=== PATIENT | female | born 1990 | race Caucasian/White ===

== ENCOUNTER 2018-05-27 15:13 | Emergency (ER) | payer OTHER, MEDICAID, SELFPAY ==
[2018-05-27] VITALS (14 sets, daily range): BP systolic 80–105; BP diastolic 37–74; PULSE 107–132; RESP 18–32; TEMP 36.3–38.2; O2SAT 90–100
--- NOTE | 2018-05-27 15:31 | ED.NAVMDI ---
HPI - Nausea/Vomiting/Diarrhea <Linette Angeles PA-C - Last Filed: 05/27/18 22:38> General Chief complaint: Nausea/Vomiting/Diarrhea Stated complaint: vomiting and not feeling good Time Seen by Provider: 05/27/18 15:31 Source: patient Mode of arrival: ambulatory Limitations: no limitations History of Present Illness HPI Narrative: This 27-year-old female comes to ED due to nausea and vomiting today. She states that she has been unable to keep down water or any food today and has vomited 4 times. She has also had some loose stool but no liam diarrhea. She states that she did stop on the way here and was able to keep down Mountain Dew, but still feeling very thirsty. She states that she has not had any abdominal pain unless she is retching, however she has had some crampy pain in her low back and legs off and on. She has some headache and she has had some chills. She denies any recent illness, fever. She denies any chest pain or dyspnea. She denies any dysuria, frequency, or urgency. She states that her menses are irregular and she does not know if she could possibly be . She does state that she drinks alcohol regularly, 1/5 to 0.5 gal of vodka per day, last drink was last night, states she has not been drinking today because she had been camping and she is interested in stopping alcohol. 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 She denies any other complaints on systems review except feeling anxious. She states that she is completely healthy aside from over use of alcohol and she has not had any surgeries previously. Related Data Home Medications Medication Instructions Recorded Confirmed Unobtainable 05/27/18 05/27/18 Allergies Allergy/AdvReac Type Severity Reaction Status Date / Time No Known Drug Allergies Allergy Verified 05/27/18 16:22 Review of Systems <Linette Angeles PA-C - Last Filed: 05/27/18 22:38> Review of Systems All systems reviewed & are unremarkable except as noted in HPI and below Exam <Linette Angeles PA-C - Last Filed: 05/27/18 22:38> Narrative Exam Narrative: GENERAL APPEARANCE: Patient resting comfortably, appears somewhat anxious but in no distress HEENT: PERRL, EOMI, no scleral icterus, normal oropharynx NECK: Supple, no masses LUNGS: Clear to auscultation bilaterally. HEART: Rate and rhythm regular, normal S1 and S2, no S3 or S4. ABDOMEN: Soft, nontender, nondistended, bowel sounds present x 4 quadrants, no masses palpable, no hepatosplenomegaly. No CVAT EXTREMITIES: No edema, no cyanosis DERMATOLOGIC: No jaundice or exanthem NEUROLOGIC: Alert and oriented with normal speech and coordination. Very minimal tremor with arms extended Initial Vital Signs Initial Vital Signs: Vital Signs Temperature 100.5 F H 05/27/18 15:27 Pulse Rate 132 H 05/27/18 15:27 Respiratory Rate 30 H 05/27/18 15:27 Blood Pressure 105/74 05/27/18 15:27 Pulse Oximetry 100 05/27/18 15:27 <Don Gao MD - Last Filed: 05/27/18 23:52> Initial Vital Signs Initial Vital Signs: Vital Signs Temperature 100.5 F H 05/27/18 15:27 Pulse Rate 132 H 05/27/18 15:27 Respiratory Rate 30 H 05/27/18 15:27 Blood Pressure 105/74 05/27/18 15:27 Pulse Oximetry 100 05/27/18 15:27 Course <Linette Angeles PA-C - Last Filed: 05/27/18 22:38> Additional Information: Patient was unable to give a urine sample until after hydrated. She did not suspect , however reviewed findings with her. She states that this is not and wanted and she does want to go into treatment. She does not have any indication of sepsis on exam, i.e. upper respiratory symptoms, urinary symptoms, apparent cellulitis, etc. She felt better almost as soon as she received hydration and fluids and has not vomited while here in the department. Ultrasound was ordered to determine gestational appearance and age, heart tones were auscultated inferior to the umbilicus 150-160s US tech reported 26 1/2 week gestation with tachycardia 180s. Discussed with Dr. Ying data conversion developer for OB who felt that patient needed to transfer to facility where OB and detox issues both could be managed. I spoke with [facility] inpatient addiction recovery program and they would not be able to take patient until tomorrow. Patient initially had some fever and mildly elevated lactate which came down to normal with fluids. She does not have a white count. She had an elevated procalcitonin. She does not have a clear infection source. We have continued to hydrate her. She remains somewhat tachycardic but improved currently. She remains free of dyspnea or chest pain and has been resting comfortably. I spoke with Dr. High about patient's history, concern for withdrawal issues as well as 26 1/2 week living IUP on US, just learned about today with no care. Patient states that she does want to detox. Dr. High is agreeable with transfer and we have arranged for transport to arrive at at 12:30-1 a.m[address] I reviewed with Dr. High lack of any clear infection source but given her history of meth use including IV, we did give a dose of vancomycin as well as initiating cefepime prior to transport. Drs. Villagran and Murray have been following as well and are agreeable with this plan. Dr. Gao will monitor until d/c. US images have been transferred Orders Ordered: ED Orders 05/27/18 15:35 Complete Blood Count AUTO DIFF Stat Comprehensive Metabolic Panel Stat HCG Quantitative Stat Lipase Stat Magnesium Stat 05/27/18 17:04 Urine Drug Screen, Rapid Stat 05/27/18 17:05 Lactate (Lactic Acid) Stat Procalcitonin Stat 05/27/18 17:08 US OB limited Stat 05/27/18 18:30 Urine Microscopic Stat 05/27/18 18:55 Blood Culture Stat Lactate (Lactic Acid) Stat 05/27/18 19:15 Blood Culture Stat Magnesium Sulfate 2 gm/ Folic Acid 1 mg/ Thiamine HCl 100 mg / Multivitamins 10 ml/ Sodium Chloride 1,015.2 mls @ 125 mls/hr IV NOW ONE Stop: 05/28/18 00:34 Last Admin: 05/27/18 17:15 Dose: 125 mls/hr Discontinued Medications Sodium Chloride (Normal Saline 0.9%) 1,000 mls @ 1,000 mls/hr IV BOLUS ONE Stop: 05/27/18 17:17 Last Infusion: 05/27/18 17:36 Dose: 0 mls/hr Admin: 05/27/18 16:20 Dose: 1,000 mls/hr Sodium Chloride (Normal Saline 0.9%) 1,000 mls @ 1,000 mls/hr IV BOLUS ONE Stop: 05/27/18 18:59 Last Infusion: 05/27/18 19:21 Dose: 0 mls/hr Admin: 05/27/18 18:00 Dose: 1,000 mls/hr Vancomycin HCl 1,250 mg/ (Sodium Chloride) 500 mls @ 333.333 mls/hr IV NOW ONE Stop: 05/27/18 19:01 Last Infusion: 05/27/18 21:20 Dose: 0 mls/hr Admin: 05/27/18 19:52 Dose: 333.333 mls/hr Cefepime HCl 2 gm/ Sodium (Chloride) 100 mls @ 200 mls/hr IV NOW ONE Stop: 05/27/18 21:45 Last Infusion: 05/27/18 23:21 Dose: 0 mls/hr Admin: 05/27/18 22:44 Dose: 200 mls/hr Sodium Chloride (Normal Saline 0.9%) 1,000 mls @ 1,000 mls/hr IV BOLUS ONE Stop: 05/27/18 22:43 Last Infusion: 05/27/18 23:21 Dose: 0 mls/hr Admin: 05/27/18 21:40 Dose: 1,000 mls/hr Ibuprofen (Advil) 400 mg PO NOW ONE Stop: 05/27/18 16:49 Last Admin: 05/27/18 17:00 Dose: 400 mg Lorazepam (Ativan) 2 mg IV NOW ONE Stop: 05/27/18 15:57 Last Admin: 05/27/18 16:08 Dose: 2 mg Ondansetron HCl (Zofran) 4 mg IV NOW ONE Stop: 05/27/18 15:57 Last Admin: 05/27/18 16:08 Dose: 4 mg Vital Signs - 8 hr 05/27/18 16:30 05/27/18 17:30 05/27/18 17:40 Temperature 100.8 F H 97.3 F L Pulse Rate 132 H Respiratory Rate 22 Blood Pressure [Left Arm] 95/44 L Pulse Oximetry 97 98 05/27/18 18:30 05/27/18 18:45 05/27/18 19:00 Temperature Pulse Rate 129 H 126 H 126 H Respiratory Rate 32 H 32 H 32 H Blood Pressure [Left Arm] 89/42 L 86/39 L 80/46 L Pulse Oximetry 97 95 96 05/27/18 19:15 05/27/18 19:43 05/27/18 20:00 Temperature 98.1 F Pulse Rate 124 H 114 H Respiratory Rate 27 H 18 Blood Pressure [Left Arm] 87/42 L 86/44 L Pulse Oximetry 93 05/27/18 20:55 05/27/18 21:15 05/27/18 22:30 Temperature Pulse Rate 112 H 113 H 107 H Respiratory Rate 26 H 26 H 25 H Blood Pressure [Left Arm] 81/40 L 86/42 L 84/37 L Pulse Oximetry 94 92 91 05/27/18 23:00 Temperature Pulse Rate 108 H Respiratory Rate 25 H Blood Pressure [Left Arm] 91/43 L Pulse Oximetry 90 L <Don Gao MD - Last Filed: 05/27/18 23:52> Orders Ordered: ED Orders 05/27/18 15:35 Complete Blood Count AUTO DIFF Stat Comprehensive Metabolic Panel Stat HCG Quantitative Stat Lipase Stat Magnesium Stat 05/27/18 17:04 Urine Drug Screen, Rapid Stat 05/27/18 17:05 Lactate (Lactic Acid) Stat Procalcitonin Stat 05/27/18 17:08 US OB limited Stat 05/27/18 18:30 Urine Microscopic Stat 05/27/18 18:55 Blood Culture Stat Lactate (Lactic Acid) Stat 05/27/18 19:15 Blood Culture Stat Magnesium Sulfate 2 gm/ Folic Acid 1 mg/ Thiamine HCl 100 mg / Multivitamins 10 ml/ Sodium Chloride 1,015.2 mls @ 125 mls/hr IV NOW ONE Stop: 05/28/18 00:34 Last Admin: 05/27/18 17:15 Dose: 125 mls/hr Discontinued Medications Sodium Chloride (Normal Saline 0.9%) 1,000 mls @ 1,000 mls/hr IV BOLUS ONE Stop: 05/27/18 17:17 Last Infusion: 05/27/18 17:36 Dose: 0 mls/hr Admin: 05/27/18 16:20 Dose: 1,000 mls/hr Sodium Chloride (Normal Saline 0.9%) 1,000 mls @ 1,000 mls/hr IV BOLUS ONE Stop: 05/27/18 18:59 Last Infusion: 05/27/18 19:21 Dose: 0 mls/hr Admin: 05/27/18 18:00 Dose: 1,000 mls/hr Vancomycin HCl 1,250 mg/ (Sodium Chloride) 500 mls @ 333.333 mls/hr IV NOW ONE Stop: 05/27/18 19:01 Last Infusion: 05/27/18 21:20 Dose: 0 mls/hr Admin: 05/27/18 19:52 Dose: 333.333 mls/hr Cefepime HCl 2 gm/ Sodium (Chloride) 100 mls @ 200 mls/hr IV NOW ONE Stop: 05/27/18 21:45 Last Infusion: 05/27/18 23:21 Dose: 0 mls/hr Admin: 05/27/18 22:44 Dose: 200 mls/hr Sodium Chloride (Normal Saline 0.9%) 1,000 mls @ 1,000 mls/hr IV BOLUS ONE Stop: 05/27/18 22:43 Last Infusion: 05/27/18 23:21 Dose: 0 mls/hr Admin: 05/27/18 21:40 Dose: 1,000 mls/hr Ibuprofen (Advil) 400 mg PO NOW ONE Stop: 05/27/18 16:49 Last Admin: 05/27/18 17:00 Dose: 400 mg Lorazepam (Ativan) 2 mg IV NOW ONE Stop: 05/27/18 15:57 Last Admin: 05/27/18 16:08 Dose: 2 mg Ondansetron HCl (Zofran) 4 mg IV NOW ONE Stop: 05/27/18 15:57 Last Admin: 05/27/18 16:08 Dose: 4 mg Vital Signs - 8 hr 05/27/18 16:30 05/27/18 17:30 05/27/18 17:40 Temperature 100.8 F H 97.3 F L Pulse Rate 132 H Respiratory Rate 22 Blood Pressure [Left Arm] 95/44 L Pulse Oximetry 97 98 05/27/18 18:30 05/27/18 18:45 05/27/18 19:00 Temperature Pulse Rate 129 H 126 H 126 H Respiratory Rate 32 H 32 H 32 H Blood Pressure [Left Arm] 89/42 L 86/39 L 80/46 L Pulse Oximetry 97 95 96 05/27/18 19:15 05/27/18 19:43 05/27/18 20:00 Temperature 98.1 F Pulse Rate 124 H 114 H Respiratory Rate 27 H 18 Blood Pressure [Left Arm] 87/42 L 86/44 L Pulse Oximetry 93 05/27/18 20:55 05/27/18 21:15 05/27/18 22:30 Temperature Pulse Rate 112 H 113 H 107 H Respiratory Rate 26 H 26 H 25 H Blood Pressure [Left Arm] 81/40 L 86/42 L 84/37 L Pulse Oximetry 94 92 91 05/27/18 23:00 Temperature Pulse Rate 108 H Respiratory Rate 25 H Blood Pressure [Left Arm] 91/43 L Pulse Oximetry 90 L MDM - Nausea/Vomiting/Diarrhea <Linette Angeles PA-C - Last Filed: 05/27/18 22:38> Medical Records No previous records from this facility are available for review Lab Data Attestation: I reviewed the patient's lab results. Result diagrams: 05/27/18 15:35 05/27/18 15:35 Lab Results 05/27/18 05/27/18 05/27/18 Range/Units 15:35 15:35 15:35 WBC 2.0 L (4.5-11.0) X10^3/uL RBC 3.50 L (4.0-5.2) X10^6/uL Hgb 11.0 L (12.0-16.0) g/dL Hct 32.1 L (36-46) % MCV 91.8 (80-100) fL MCH 31.3 (26-34) PG MCHC 34.1 (30-36) % RDW 13.4 (11.6-14.8) % Plt Count 208 (150-400) X10^3/uL Neut % (Auto) Not Reportable Lymph % (Auto) Not Reportable [place] % (Auto) Not Reportable Eos % (Auto) Not Reportable Baso % (Auto) Not Reportable Total Counted 100 Seg Neutrophils % 50.0 (38-70) % Band Neutrophils % 44.0 H (3-7) % Lymphocytes % (Manual) 4.0 L (25-45) % Monocytes % (Manual) 1.0 L (2-11) % Eosinophils % (Manual) 0.0 L (2-4) % Basophils % (Manual) 1.0 (0-1) % Neutrophils # (Manual) 1880 L (2713-2352) /uL RBC Morphology Not Reportable Polychromasia 1+ H Sodium 135 L (137-145) mmol/L Potassium 3.3 L (3.4-5.1) mmol/L Chloride 104 (98-107) mmol/L Carbon Dioxide 18 L (22-32) mmol/L BUN 12 (7-17) mg/dL Creatinine 0.60 (0.52-1.04) mg/dL Estimated GFR > 60.0 (>60) mL/min BUN/Creatinine Ratio 20.0 (6-22) Glucose 103 H (70-100) mg/dL Lactate (0.7-2.1) mmol/L Calcium 8.2 L (8.4-10.2) mg/dL Magnesium 1.3 L (1.6-2.3) mg/dL Total Bilirubin 0.9 (0.2-1.3) mg/dL AST 83 H (14-36) IU/L ALT 32 (9-52) IU/L Alkaline Phosphatase 137 H (38-126) U/L Total Protein 6.0 L (6.3-8.2) g/dL Albumin 3.2 L (3.5-5.0) g/dL Globulin 2.8 (1.7-4.1) g/dL Albumin/Globulin Ratio 1.1 (1.0-2.8) Lipase 84 (23-300) U/L Procalcitonin (<0.5) ng/mL HCG, Quant 7813.9 mIU/mL Urine RBC (0-5/HPF) Urine WBC (0-5/HPF) Ur Squamous Epith Cells Amorphous Sediment Urine Bacteria (None) Urine Mucus (Negative) Ur Culture Indicated? Micro UA Comment Urine Opiates Screen (Negative) Ur Oxycodone Screen (Negative) Urine Methadone Screen (Negative) Ur Barbiturates Screen (Negative) U Tricyclic Antidepress (Negative) Ur Phencyclidine Scrn (Negative) Ur Amphetamines Screen (Negative) U Methamphetamines Scrn (Negative) Ur MDMA Scrn (Ecstasy) (Negative) U Benzodiazepines Scrn (Negative) Urine Cocaine Screen (Negative) U Marijuana (THC) Screen (Negative) 05/27/18 05/27/18 05/27/18 Range/Units 17:04 17:05 17:05 WBC (4.5-11.0) X10^3/uL RBC (4.0-5.2) X10^6/uL Hgb (12.0-16.0) g/dL Hct (36-46) % MCV (80-100) fL MCH (26-34) PG MCHC (30-36) % RDW (11.6-14.8) % Plt Count (150-400) X10^3/uL Neut % (Auto) Lymph % (Auto) [place] % (Auto) Eos % (Auto) Baso % (Auto) Total Counted Seg Neutrophils % (38-70) % Band Neutrophils % (3-7) % Lymphocytes % (Manual) (25-45) % Monocytes % (Manual) (2-11) % Eosinophils % (Manual) (2-4) % Basophils % (Manual) (0-1) % Neutrophils # (Manual) (8695-2588) /uL RBC Morphology Polychromasia Sodium (137-145) mmol/L Potassium (3.4-5.1) mmol/L Chloride (98-107) mmol/L Carbon Dioxide (22-32) mmol/L BUN (7-17) mg/dL Creatinine (0.52-1.04) mg/dL Estimated GFR (>60) mL/min BUN/Creatinine Ratio (6-22) Glucose (70-100) mg/dL Lactate 2.2 H (0.7-2.1) mmol/L Calcium (8.4-10.2) mg/dL Magnesium (1.6-2.3) mg/dL Total Bilirubin (0.2-1.3) mg/dL AST (14-36) IU/L ALT (9-52) IU/L Alkaline Phosphatase (38-126) U/L Total Protein (6.3-8.2) g/dL Albumin (3.5-5.0) g/dL Globulin (1.7-4.1) g/dL Albumin/Globulin Ratio (1.0-2.8) Lipase (23-300) U/L Procalcitonin 18.02 H (<0.5) ng/mL HCG, Quant mIU/mL Urine RBC (0-5/HPF) Urine WBC (0-5/HPF) Ur Squamous Epith Cells Amorphous Sediment Urine Bacteria (None) Urine Mucus (Negative) Ur Culture Indicated? Micro UA Comment Urine Opiates Screen Negative (Negative) Ur Oxycodone Screen Negative (Negative) Urine Methadone Screen Negative (Negative) Ur Barbiturates Screen Negative (Negative) U Tricyclic Antidepress Negative (Negative) Ur Phencyclidine Scrn Negative (Negative) Ur Amphetamines Screen Positive H (Negative) U Methamphetamines Scrn Positive H (Negative) Ur MDMA Scrn (Ecstasy) Negative (Negative) U Benzodiazepines Scrn Negative (Negative) Urine Cocaine Screen Negative (Negative) U Marijuana (THC) Screen Positive H (Negative) 05/27/18 05/27/18 Range/Units 18:30 18:55 WBC (4.5-11.0) X10^3/uL RBC (4.0-5.2) X10^6/uL Hgb (12.0-16.0) g/dL Hct (36-46) % MCV (80-100) fL MCH (26-34) PG MCHC (30-36) % RDW (11.6-14.8) % Plt Count (150-400) X10^3/uL Neut % (Auto) Lymph % (Auto) [place] % (Auto) Eos % (Auto) Baso % (Auto) Total Counted Seg Neutrophils % (38-70) % Band Neutrophils % (3-7) % Lymphocytes % (Manual) (25-45) % Monocytes % (Manual) (2-11) % Eosinophils % (Manual) (2-4) % Basophils % (Manual) (0-1) % Neutrophils # (Manual) (4413-8818) /uL RBC Morphology Polychromasia Sodium (137-145) mmol/L Potassium (3.4-5.1) mmol/L Chloride (98-107) mmol/L Carbon Dioxide (22-32) mmol/L BUN (7-17) mg/dL Creatinine (0.52-1.04) mg/dL Estimated GFR (>60) mL/min BUN/Creatinine Ratio (6-22) Glucose (70-100) mg/dL Lactate 2.0 (0.7-2.1) mmol/L Calcium (8.4-10.2) mg/dL Magnesium (1.6-2.3) mg/dL Total Bilirubin (0.2-1.3) mg/dL AST (14-36) IU/L ALT (9-52) IU/L Alkaline Phosphatase (38-126) U/L Total Protein (6.3-8.2) g/dL Albumin (3.5-5.0) g/dL Globulin (1.7-4.1) g/dL Albumin/Globulin Ratio (1.0-2.8) Lipase (23-300) U/L Procalcitonin (<0.5) ng/mL HCG, Quant mIU/mL Urine RBC None seen (0-5/HPF) Urine WBC 1-5/hpf (0-5/HPF) Ur Squamous Epith Cells 1-5 /hpf Amorphous Sediment 1+ Urine Bacteria Few (2-10) H (None) Urine Mucus 1+ H (Negative) Ur Culture Indicated? Cult not indicated Micro UA Comment Not Reportable Urine Opiates Screen (Negative) Ur Oxycodone Screen (Negative) Urine Methadone Screen (Negative) Ur Barbiturates Screen (Negative) U Tricyclic Antidepress (Negative) Ur Phencyclidine Scrn (Negative) Ur Amphetamines Screen (Negative) U Methamphetamines Scrn (Negative) Ur MDMA Scrn (Ecstasy) (Negative) U Benzodiazepines Scrn (Negative) Urine Cocaine Screen (Negative) U Marijuana (THC) Screen (Negative) Imaging Data US OB: Radiologist's impression: [place] [address] Ultrasound Report Signed Patient: Ivania Rdz MR#: [id number] : 1990 Acct:[id number] Age/Sex: 27 / F Date of Service: 05/27/18 Loc: ED Accession Number: [id number] Procedure: US OB limited Ordering Provider: Linette Angeles P.A-C PROCEDURE: US OB LIMITED INDICATIONS: UNKNOWN /DATES OUTSIDE/PRIOR DATING DATA: Last menstrual period (LMP): Unknown. LMP-based estimated date of delivery (JEWELS): Unknown. First dating scan (date and location): 05/27/18. Estimated date of delivery (JEWELS) from first dating scan: 09/01/18. TECHNIQUE: Real-time scanning was performed of the fetus, with image documentation. COMPARISON: [facility], US, OB SONO > 14 WKS, 09/21/2014, 11:32. [facility], US, OB SONO > 14 WKS, 07/18/2011, 15:18. [facility], , OB SONO > 14 WKS, 05/23/2010, 13:04. FINDINGS: A single living intrauterine gestation is present. Presentation: Vertex. Placenta: Placental position is posterior, without previa. Lower placental edge 0.5 to 3 cm from internal cervical os qualifies as low lying placenta. Marginal previa is defined as lower edge 0 to 0.5 mm from internal os. Amniotic fluid index: 16.0 cm, normal range is 5-24 cm. heart rate: 180 beats per minute. Maternal cervical canal: 3.7 cm long. Normal lower limit is 2.5 cm. Report any funneling of internal cervical os: % of canal length, shape (U or V), width or any U-shaped funneling. Estimated gestational age from initial scan: 26 weeks one day Estimated weight: 987 g. BPD: 6.2 cm 25 weeks one day HC: 23.5 cm 25 weeks 4 days AC: 23.3 cm 27 weeks 4 days FL: 4.9 cm 26 weeks 2 days. IMPRESSION: 1. Single live intrauterine with ultrasound gestational age of 26 weeks one day with ultrasound JEWELS of 09/01/18. Dictated by: Muna Fernandez M.D. on 05/27/2018 at 18:50 Approved by: Muna Fernandez M.D. on 05/27/2018 at 18:53 ECG Data Attestation: I personally reviewed and interpreted this ECG as follows: (Sinus tachycardia with rate 110, normal axis) Prior ECG tracings: not available for review <Don Gao MD - Last Filed: 05/27/18 23:52> Lab Data Lab Results 05/27/18 05/27/18 05/27/18 Range/Units 15:35 15:35 15:35 WBC 2.0 L (4.5-11.0) X10^3/uL RBC 3.50 L (4.0-5.2) X10^6/uL Hgb 11.0 L (12.0-16.0) g/dL Hct 32.1 L (36-46) % MCV 91.8 (80-100) fL MCH 31.3 (26-34) PG MCHC 34.1 (30-36) % RDW 13.4 (11.6-14.8) % Plt Count 208 (150-400) X10^3/uL Neut % (Auto) Not Reportable Lymph % (Auto) Not Reportable [place] % (Auto) Not Reportable Eos % (Auto) Not Reportable Baso % (Auto) Not Reportable Total Counted 100 Seg Neutrophils % 50.0 (38-70) % Band Neutrophils % 44.0 H (3-7) % Lymphocytes % (Manual) 4.0 L (25-45) % Monocytes % (Manual) 1.0 L (2-11) % Eosinophils % (Manual) 0.0 L (2-4) % Basophils % (Manual) 1.0 (0-1) % Neutrophils # (Manual) 1880 L (4213-7625) /uL RBC Morphology Not Reportable Polychromasia 1+ H Sodium 135 L (137-145) mmol/L Potassium 3.3 L (3.4-5.1) mmol/L Chloride 104 (98-107) mmol/L Carbon Dioxide 18 L (22-32) mmol/L BUN 12 (7-17) mg/dL Creatinine 0.60 (0.52-1.04) mg/dL Estimated GFR > 60.0 (>60) mL/min BUN/Creatinine Ratio 20.0 (6-22) Glucose 103 H (70-100) mg/dL Lactate (0.7-2.1) mmol/L Calcium 8.2 L (8.4-10.2) mg/dL Magnesium 1.3 L (1.6-2.3) mg/dL Total Bilirubin 0.9 (0.2-1.3) mg/dL AST 83 H (14-36) IU/L ALT 32 (9-52) IU/L Alkaline Phosphatase 137 H (38-126) U/L Total Protein 6.0 L (6.3-8.2) g/dL Albumin 3.2 L (3.5-5.0) g/dL Globulin 2.8 (1.7-4.1) g/dL Albumin/Globulin Ratio 1.1 (1.0-2.8) Lipase 84 (23-300) U/L Procalcitonin (<0.5) ng/mL HCG, Quant 7813.9 mIU/mL Urine RBC (0-5/HPF) Urine WBC (0-5/HPF) Ur Squamous Epith Cells Amorphous Sediment Urine Bacteria (None) Urine Mucus (Negative) Ur Culture Indicated? Micro UA Comment Urine Opiates Screen (Negative) Ur Oxycodone Screen (Negative) Urine Methadone Screen (Negative) Ur Barbiturates Screen (Negative) U Tricyclic Antidepress (Negative) Ur Phencyclidine Scrn (Negative) Ur Amphetamines Screen (Negative) U Methamphetamines Scrn (Negative) Ur MDMA Scrn (Ecstasy) (Negative) U Benzodiazepines Scrn (Negative) Urine Cocaine Screen (Negative) U Marijuana (THC) Screen (Negative) 05/27/18 05/27/18 05/27/18 Range/Units 17:04 17:05 17:05 WBC (4.5-11.0) X10^3/uL RBC (4.0-5.2) X10^6/uL Hgb (12.0-16.0) g/dL Hct (36-46) % MCV (80-100) fL MCH (26-34) PG MCHC (30-36) % RDW (11.6-14.8) % Plt Count (150-400) X10^3/uL Neut % (Auto) Lymph % (Auto) [place] % (Auto) Eos % (Auto) Baso % (Auto) Total Counted Seg Neutrophils % (38-70) % Band Neutrophils % (3-7) % Lymphocytes % (Manual) (25-45) % Monocytes % (Manual) (2-11) % Eosinophils % (Manual) (2-4) % Basophils % (Manual) (0-1) % Neutrophils # (Manual) (0313-8091) /uL RBC Morphology Polychromasia Sodium (137-145) mmol/L Potassium (3.4-5.1) mmol/L Chloride (98-107) mmol/L Carbon Dioxide (22-32) mmol/L BUN (7-17) mg/dL Creatinine (0.52-1.04) mg/dL Estimated GFR (>60) mL/min BUN/Creatinine Ratio (6-22) Glucose (70-100) mg/dL Lactate 2.2 H (0.7-2.1) mmol/L Calcium (8.4-10.2) mg/dL Magnesium (1.6-2.3) mg/dL Total Bilirubin (0.2-1.3) mg/dL AST (14-36) IU/L ALT (9-52) IU/L Alkaline Phosphatase (38-126) U/L Total Protein (6.3-8.2) g/dL Albumin (3.5-5.0) g/dL Globulin (1.7-4.1) g/dL Albumin/Globulin Ratio (1.0-2.8) Lipase (23-300) U/L Procalcitonin 18.02 H (<0.5) ng/mL HCG, Quant mIU/mL Urine RBC (0-5/HPF) Urine WBC (0-5/HPF) Ur Squamous Epith Cells Amorphous Sediment Urine Bacteria (None) Urine Mucus (Negative) Ur Culture Indicated? Micro UA Comment Urine Opiates Screen Negative (Negative) Ur Oxycodone Screen Negative (Negative) Urine Methadone Screen Negative (Negative) Ur Barbiturates Screen Negative (Negative) U Tricyclic Antidepress Negative (Negative) Ur Phencyclidine Scrn Negative (Negative) Ur Amphetamines Screen Positive H (Negative) U Methamphetamines Scrn Positive H (Negative) Ur MDMA Scrn (Ecstasy) Negative (Negative) U Benzodiazepines Scrn Negative (Negative) Urine Cocaine Screen Negative (Negative) U Marijuana (THC) Screen Positive H (Negative) 05/27/18 05/27/18 Range/Units 18:30 18:55 WBC (4.5-11.0) X10^3/uL RBC (4.0-5.2) X10^6/uL Hgb (12.0-16.0) g/dL Hct (36-46) % MCV (80-100) fL MCH (26-34) PG MCHC (30-36) % RDW (11.6-14.8) % Plt Count (150-400) X10^3/uL Neut % (Auto) Lymph % (Auto) [place] % (Auto) Eos % (Auto) Baso % (Auto) Total Counted Seg Neutrophils % (38-70) % Band Neutrophils % (3-7) % Lymphocytes % (Manual) (25-45) % Monocytes % (Manual) (2-11) % Eosinophils % (Manual) (2-4) % Basophils % (Manual) (0-1) % Neutrophils # (Manual) (6286-3643) /uL RBC Morphology Polychromasia Sodium (137-145) mmol/L Potassium (3.4-5.1) mmol/L Chloride (98-107) mmol/L Carbon Dioxide (22-32) mmol/L BUN (7-17) mg/dL Creatinine (0.52-1.04) mg/dL Estimated GFR (>60) mL/min BUN/Creatinine Ratio (6-22) Glucose (70-100) mg/dL Lactate 2.0 (0.7-2.1) mmol/L Calcium (8.4-10.2) mg/dL Magnesium (1.6-2.3) mg/dL Total Bilirubin (0.2-1.3) mg/dL AST (14-36) IU/L ALT (9-52) IU/L Alkaline Phosphatase (38-126) U/L Total Protein (6.3-8.2) g/dL Albumin (3.5-5.0) g/dL Globulin (1.7-4.1) g/dL Albumin/Globulin Ratio (1.0-2.8) Lipase (23-300) U/L Procalcitonin (<0.5) ng/mL HCG, Quant mIU/mL Urine RBC None seen (0-5/HPF) Urine WBC 1-5/hpf (0-5/HPF) Ur Squamous Epith Cells 1-5 /hpf Amorphous Sediment 1+ Urine Bacteria Few (2-10) H (None) Urine Mucus 1+ H (Negative) Ur Culture Indicated? 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 The patient was found to be , her fetus was tachycardic initial FHTs of 180. Despite aggressive IV hydration the patient's blood pressures are labile. Her blood pressure dropped as low as 75 systolic. She has had a small amount of urine output, she has now received 4 L IV fluids. Systolic blood pressures within the last hour fluctuated 84-94. Her heart rate has dropped from 120-108. She had initial lactate of 2.2, with hydration only the lactate dropped to 2.0. Although tachycardic her heart sounds normal. Her lungs are clear. She has no evidence of ENT infection or neck pain. Her abdominal exam and uterine exam are benign other than the tachycardia noted on ultrasound. A urine sample does not show infection. She is likely withdrawing from recreational drugs. She is clearly dehydrated. Due to the concern of drug abuse, the poor vital signs, and a subtle elevation to the initial lactate level, she was covered for sepsis. Blood cultures and urine culture have been obtained. She has received IV antibiotics. She is clinically improved prior to transport. She notes feeling better. I did advise continued aggressive IV hydration to the transport crew. Hydration seems to be the biggest issue at this point. Although the patient was initially presented by CARMELA Angeles, I reviewed the case again with the receiving drupal php developer at the [facility] prior to her departure.
[2018-05-27 16:08] LABS: Hematocrit 32.1 % (36-46); Mean Corpuscular HGB Conc 34.1 % (30-36); Mean Corpuscular Hemoglobin 31.3 PG (26-34); Mean Corpuscular Volume 91.8 fL (80-100); Platelet Count 208 X10^3/uL (150-400); Red Cell Distribution Width 13.4 % (11.6-14.8)
[2018-05-27] MEDS: LORazepam 2 MG/ML SYRINGE IV (16:08)
[2018-05-27] MEDS: ONDANSETRON 4 MG/2 ML INJ IV (16:08)
[2018-05-27 16:09] LABS: Add Manual Diff / Slide Review YES
[2018-05-27 16:15] LABS: Alanine Aminotransferase 32 IU/L (9-52); Albumin 3.2 g/dL (3.5-5.0); Albumin Globulin Ratio 1.1 (1.0-2.8); Alkaline Phosphatase 137 U/L (38-126); Aspartate Aminotransferase 83 IU/L (14-36); Bilirubin Total 0.9 mg/dL (0.2-1.3); Blood Urea Nitrogen 12 mg/dL (7-17); Calcium 8.2 mg/dL (8.4-10.2); Carbon Dioxide 18 mmol/L (22-32); Chloride 104 mmol/L (98-107); Estimated Glomerular Filt Rate > 60.0 mL/min (>60); Globulin 2.8 g/dL (1.7-4.1); Glucose 103 mg/dL (70-100); HEMOLYSIS 22 (0-50); Lipase 84 U/L (23-300); Magnesium 1.3 mg/dL (1.6-2.3); Potassium 3.3 mmol/L (3.4-5.1); Sodium 135 mmol/L (137-145)
[2018-05-27] MEDS: SODIUM CHLORIDE 0.9% 1,000 ML 1000 ML IV ×3 (16:20→21:40)
[2018-05-27 16:32] LABS: Neutrophils Absolute Manual 1880 /uL (3000-5900); Total Cells Counted 100
[2018-05-27 16:33] LABS: Polychromasia 1+
[2018-05-27] MEDS: IBUPROFEN 400 MG TABLET PO (17:00)
--- NOTE | 2018-05-27 17:08 | DI.US.S_ITS ---
PROCEDURE: US OB LIMITED INDICATIONS: UNKNOWN /DATES OUTSIDE/PRIOR DATING DATA: Last menstrual period (LMP): Unknown. LMP-based estimated date of delivery (JEWELS): Unknown. First dating scan (date and location): 05/27/18. Estimated date of delivery (JEWELS) from first dating scan: 09/01/18. TECHNIQUE: Real-time scanning was performed of the fetus, with image documentation. COMPARISON: [facility], US, OB SONO > 14 WKS, 09/21/2014, 11:32. [facility], US, OB SONO > 14 WKS, 07/18/2011, 15:18. [facility], US, OB SONO > 14 WKS, 05/23/2010, 13:04. FINDINGS: A single living intrauterine gestation is present. Presentation: Vertex. Placenta: Placental position is posterior, without previa. Lower placental edge 0.5 to 3 cm from internal cervical os qualifies as low lying placenta. Marginal previa is defined as lower edge 0 to 0.5 mm from internal os. Amniotic fluid index: 16.0 cm, normal range is 5-24 cm. heart rate: 180 beats per minute. Maternal cervical canal: 3.7 cm long. Normal lower limit is 2.5 cm. Report any funneling of internal cervical os: % of canal length, shape (U or V), width or any U-shaped funneling. Estimated gestational age from initial scan: 26 weeks one day Estimated weight: 987 g. BPD: 6.2 cm 25 weeks one day HC: 23.5 cm 25 weeks 4 days AC: 23.3 cm 27 weeks 4 days FL: 4.9 cm 26 weeks 2 days. IMPRESSION: 1. Single live intrauterine with ultrasound gestational age of 26 weeks one day with ultrasound JEWELS of 09/01/18. Dictated by: Muna Fernandez M.D. on 05/27/2018 at 18:50 Approved by: Muna Fernandez M.D. on 05/27/2018 at 18:53
[2018-05-27] MEDS: MAGNESIUM SULFATE 2 GM, FOLIC ACID 1 MG, THIAMINE 100 MG, MULTIVITAMIN 10 ML in SODIUM ... IV (17:15)
[2018-05-27 17:27] LABS: Lactate (Lactic Acid) 2.2 mmol/L (0.7-2.1)
[2018-05-27 17:34] LABS: Urine Amphetamines Positive (Negative); Urine Barbiturates Negative (Negative); Urine Benzodiazepines Negative (Negative); Urine Cocaine Negative (Negative); Urine MDMA Negative (Negative); Urine Methadone Negative (Negative); Urine Methamphetamines Positive (Negative); Urine Morphine/Opi cutoff 2000 Negative (Negative); Urine Oxycodone Negative (Negative); Urine Phencyclidine Negative (Negative); Urine Tetrahydrocannabinol Positive (Negative); Urine Tricyclic Antidepressant Negative (Negative)
[2018-05-27 17:54] LABS: HCG Quantitative /Beta subunit 7813.9 mIU/mL
[2018-05-27 17:59] LABS: Procalcitonin 18.02 ng/mL (<0.5)
[2018-05-27 18:45] LABS: RBC Urine None Seen (0-5/HPF)
[2018-05-27 18:47] LABS: Amorphous Sediment Urine 1+; Squamous Epithelial Cell Urine 1-5 /HPF; WBC Urine 1-5/HPF (0-5/HPF)
[2018-05-27 18:48] LABS: Bacteria Urine Few (2-10); Culture Indicated Urine Cult Not Indicated; Mucus Urine 1+ (Negative)
[2018-05-27] MEDS: VANCOMYCIN 1,250 MG in SODIUM CHLORIDE 0.9% 500 ML 333.333 ML IV (19:52)
--- NOTE | 2018-05-27 20:14 | PC.NURSE ---
Addendum entered by Shandra Yang R.N. 05/27/18 23:43: 2300 Attempted to insert a nasal trumpet. Pt did not tolerate. 2245 Pt continuing to snore while sleeping and desatting to 88%. Readjusted pt into sniffing position. Improved to 91%. Provider aware. No new orders. Original Note: Pt is laying supine and snoring. Her oxygen saturations are 88-91% while asleep. Rouses to her name and oxygen goes up to 94-95%. Placed a towel under her neck to help alleviate snoring. Placed on 2L nasal cannula.
--- NOTE | 2018-05-27 20:56 | PC.NURSE ---
Pt denies pain, nausea, and headache at this time. She is resting with eyes closed on stretcher.
[2018-05-27 21:09] LABS: Reflexed Lactate in 2 Hours Y
--- NOTE | 2018-05-27 22:06 | PC.NURSE ---
2140: Pt c/o feeling like it has been difficult for her to breath and she is anxious again. Ordered EKG and reported to provider.
--- NOTE | 2018-05-27 22:36 | PC.NURSE ---
Pt not voiding during her time here, except for a small amount for her urine sample. Provider aware. Whitley catheter placed, per Dr. Gao.
[2018-05-27] MEDS: CEFEPIME 2 GM in SODIUM CHLORIDE 0.9% 100 ML 200 ML IV (22:44)
--- NOTE | 2018-05-28 | PC.NURSE ---
Gave report to GERALDINE Castro at .
== END 2018-05-28 00:04 | disposition short-term general hospital (02) ==
PROVIDERS: Emergency Provider Internal Medicine
DX: O99.323 Drug use complicating pregnancy, third trimester (principal); F19.10 Other psychoactive substance abuse, uncomplicated; O99.313 Alcohol use complicating pregnancy, third trimester; F10.10 Alcohol abuse, uncomplicated; Z3A.26 26 weeks gestation of pregnancy
CPT/HCPCS: 36415; 36591; 51701; 76815; 80053; 80305; 81003; 81015; 81025; 83605; 83690; 83735; 84145; 84702; 85025; 87040; 93005; 96361; 96365; 96366; 96367; 96375; 99285; 99291; 99292; J0692; J2060; J2405; J3475

== ENCOUNTER 2019-01-17 19:21 | Emergency (ER) | payer SELFPAY ==
[2019-01-17 19:25] VITALS: BP 126/84; PULSE 110; RESP 18; TEMP 37.4; O2SAT 100; BMI 36.3
[2019-01-17 22:48] VITALS: BP 121/70; PULSE 111; RESP 20; O2SAT 98
--- NOTE | 2019-01-17 22:49 | ED_ITS ---
HPI - Headache General Chief Complaint: Headache Stated Complaint: REALLY BAD HEADACHE Time Seen by Provider: 01/17/19 22:44 Source: patient Mode of arrival: ambulatory Limitations: no limitations History of Present Illness HPI Narrative: Patient is a 28-year-old female here for evaluation of a headache and palpitations. She states that prior to arrival she started to get a headache. She states that she does not get headaches and this made her very anxious. She then started to feel palpitations which made her even more anxious. She admits to being an alcoholic and drinking every day. She has not tried anything for symptoms prior to arrival. By the time I evaluated her in the emergency department she reported that all of her palpitations had resolved and that her headache had greatly improved. She did not take anything for her headache prior to arrival because she was concerned with her alcohol intake that she may have a liver problem. Related Data Home Medications Medication Instructions Recorded Confirmed Unobtainable 05/27/18 05/27/18 Allergies Allergy/AdvReac Type Severity Reaction Status Date / Time No Known Drug Allergies Allergy Verified 05/27/18 16:22 Review of Systems Constitutional Denies fever(s) and Reports headache(s) ENT Ears, Nose, Mouth, and Throat: Reports headache(s) Cardiovascular Denies chest pain, Reports palpitations and Reports dyspnea Respiratory Reports dyspnea Gastrointestinal Gastrointestinal: Denies abdominal pain, Denies nausea and Denies vomiting Musculoskeletal Denies myalgias and Denies arthralgias Integumentary/Breasts Denies rash Neurologic Denies behavioral changes and Reports headache(s) Psychiatric Reports anxiety and Denies behavioral changes Endocrine Reports palpitations Hematologic/Lymphatic Denies easy bleeding and Denies easy bruising [facility] Medical History Alcohol abuse (Chronic) Social History Smoking Status: Current every day smoker alcohol intake: current substance use type: marijuana and amphetamines Social History Smoking Status: Current every day smoker alcohol intake: current substance use type: marijuana and amphetamines Exam Initial Vital Signs Initial Vital Signs: Vital Signs Temperature 99.3 F 01/17/19 19:25 Pulse Rate 110 H 01/17/19 19:25 Respiratory Rate 18 01/17/19 19:25 Blood Pressure 126/84 01/17/19 19:25 Pulse Oximetry 100 01/17/19 19:25 Const General: cooperative, healthy appearing, comfortable, well developed, well groomed and No acute distress Orientation: alert, awake and oriented x3 HENMT Head: normal to inspection and normocephalic Resp Effort & Inspection: normal respiratory effort Auscultation: clear to auscultation bilaterally Cardio Rate: regular rate Rhythm: regular rhythm Skin Lesions: no lesions Rashes: no rashes Neuro General: alert, awake and oriented x3 Extrem General: normal to inspection and capillary refill normal Psych Appearance: grossly normal and well kempt Course Orders Ordered: Discontinued Medications Acetaminophen (Tylenol) 650 mg PO NOW ONE Stop: 01/17/19 22:50 Last Admin: 01/17/19 22:57 Dose: 650 mg Vital Signs - 8 hr 01/17/19 22:48 01/17/19 22:58 Pulse Rate 111 H 98 H Respiratory Rate 20 19 Blood Pressure 121/71 Blood Pressure [Left Arm] 121/70 Pulse Oximetry 98 99 MDM - Headache ECG Data Attestation: I personally reviewed and interpreted this ECG as follows: Prior ECG tracings: not available for review Interpretation: Sinus tachycardia 7 trigger and wanted to Normal axis and normal intervals Normal QRS Normal QTC No ST T wave changes MDM Narrative Medical decision making narrative: Patient reports an improvement in all of her symptoms prior to my evaluation in the emergency department. His EKG was tachycardic however otherwise unremarkable. Has a normal neurologic exam. Low suspicion for CVA or intracranial hemorrhage. Will hold on any radiologic studies for now. Patient was given Tylenol here in the ER to help with her headache. She was given return precautions. She expressed understanding and agreement with plan. Discharge Plan Departure Patient Disposition: Home Clinical Impression: Anxiety Headache Qualifiers: Headache type: unspecified Headache chronicity pattern: unspecified pattern Intractability: not intractable Qualified Code(s): R51 - Headache Discharge Date/Time: 01/17/19 22:58 Interventions: ED Discharge Assessment Last Done: 01/17/19 22:58 Instructions: DI for Headache Activity Restrictions/Additional Instructions: You can take Tylenol every now and then for the headaches. I do recommend that you talk with her primary doctor about your alcohol use. Return to the emergency department for any new or worsening symptoms Prescriptions: No Action Unobtainable RF: 0
[2019-01-17] MEDS: ACETAMINOPHEN 325 MG TABLET 650 MG PO (22:57)
--- NOTE | 2019-01-17 22:57 | PC.NURSE ---
re: [facility]- deferred to md duarte
[2019-01-17 22:58] VITALS: BP 121/71; PULSE 98; RESP 19; O2SAT 99
== END 2019-01-17 22:58 | disposition home or self-care (01) ==
PROVIDERS: Emergency Provider Emergency Medicine
DX: F41.9 Anxiety disorder, unspecified (principal); R51 Headache
CPT/HCPCS: 93005; 93010; 99282; 99283

== ENCOUNTER 2019-02-01 04:40 | Emergency (ER) | payer SELFPAY ==
--- NOTE | 2019-02-01 04:43 | ED.PSYCH ---
HPI - Psych General Stated Complaint: ETOH, Suicidial Thoughts Time Seen by Provider: 02/01/19 04:43 Source: patient Mode of arrival: other (police) Limitations: no limitations History of Present Illness HPI Narrative: Patient is a 28-year-old female. Is a known alcoholic. Has a known history of drug abuse. Called the police informed them that she had thoughts of hurting herself. She was brought to the emergency department by the police. Upon my questioning patient states that she lied to the police. She states that she was not going to hurt herself. She states that she lied to the police in order to get into a detox facility for her alcohol use. She states that she has been medically cleared in the past however an outpatient alcohol treatment facility in [place] would not accept her. She states that she was not qualified for the ?crisis Center ?she states she has no thoughts of hurting herself. She states that she thought that if she told the police that she was going to hurt herself that the police could get her in to the crisis Center. Related Data Home Medications Medication Instructions Recorded Confirmed Unobtainable 05/27/18 05/27/18 Allergies Allergy/AdvReac Type Severity Reaction Status Date / Time No Known Drug Allergies Allergy Verified 05/27/18 16:22 Review of Systems Cardiovascular Denies chest pain and Denies dyspnea Respiratory Denies dyspnea Integumentary/Breasts Denies rash Neurologic Denies confusion Psychiatric Denies confusion PFSH Medical History Alcohol abuse (Chronic) Social History Smoking Status: Current every day smoker alcohol intake: current substance use type: marijuana and amphetamines Social History Smoking Status: Current every day smoker alcohol intake: current substance use type: marijuana and amphetamines Exam Resp Effort & Inspection: normal respiratory effort Skin Rashes: no rashes Neuro General: alert, awake and oriented x3 Cognition: normal cognition Speech: speech normal Gait: normal gait Sensory Exam: no sensory deficits noted Extrem General: normal to inspection Psych Appearance: grossly normal and well kempt Mental Status: mental status grossly normal Speech and Movement: speech and movement normal Mood: congruent mood Affect: normal affect Attitude: other (Uncooperative) Thought Content: normal Course Orders Ordered: ED Orders 02/01/19 04:44 Acetaminophen Stat Complete Blood Count AUTO DIFF Stat Comprehensive Metabolic Panel Stat Ethanol (ETOH) Stat 02/01/19 04:45 Lipase Stat Test Serum,Qual Stat Salicylate Stat Urinalysis and Microscopic Stat Urine Drug Screen, Rapid Stat MDM - Psych MDM Narrative Medical decision making narrative: Patient was alert and oriented x3. In my opinion has the capacity to make decisions. Was not clinically intoxicated. Did not smell of alcohol. Ambulated around the emergency department without problems. Stated multiple times that she did not want to kill herself. Stated multiple times that she lied the police in order to get them to help her into a detox facility. I did inform her that we could ?medically clear? her so that she could get into a facility and help her get into a facility. She refused to have blood drawn. I informed her that I could not help her until we brendan some blood and medically cleared her. She stated you are not going to draw my blood and I will stay here for 3 days. Again in my opinion she was clinically sober and has the capacity to make decisions. Made multiple attempts to tell her that we would be able to help her however she did not want the help. Patient left against medical advice Discharge Plan Departure Patient Disposition: Left Against Medical Advice Clinical Impression: Adjustment disorder Prescriptions: No Action Unobtainable RF: 0 Stand Alone Forms: Against Medical Advice
[2019-02-01 05:00] VITALS: BP 138/94; PULSE 115; RESP 16; TEMP 36.6; O2SAT 97
--- NOTE | 2019-02-01 05:10 | PC.NURSE ---
PT denies SI, stated she lied to 911 and police to get into alcohol detox treatment faster. Pt agitated, has been drinking and refusing to answer some triage questions and refusing lab draw or poc breathalyzer. Pt placed in paper scrubs for safety and personal items locked up. PT stating she wants to leave and doesn't want to hurt herself, Dr. Villagran in room speaking with pt and pt refused care and left AMA, refusing to sign AMA form.
== END 2019-02-01 05:15 | disposition left against medical advice (07) ==
LOC: ED 05:14
PROVIDERS: Emergency Provider Emergency Medicine
DX: F43.20 Adjustment disorder, unspecified (principal)
CPT/HCPCS: 99282